=== PATIENT | female | born 1935 | race Caucasian/White ===

== ENCOUNTER → 2018-02-06 | Outpatient (REF) | payer MEDICARE ==
[2018-02-06 18:03] LABS: AMORPHOUS SEDIMENT SMALL (NEGATIVE); APPEARANCE, URINE HAZY (CLEAR); BACTERIA, URINE AUTO NEGATIVE (NEGATIVE); BILIRUBIN, URINE AUTO NEGATIVE (NEGATIVE); BLOOD, URINE BLOOD 1+ (NEGATIVE); COLOR, URINE YELLOW (YELLOW); GLUCOSE, URINE (UA) AUTO NEGATIVE (NEGATIVE); KETONE, URINE AUTO NEGATIVE (NEGATIVE); LEUKOCYTE ESTERASE, URINE AUTO 3+ (NEGATIVE); NITRITE, URINE AUTO NEGATIVE (NEGATIVE); PROTEIN, URINE AUTO NEGATIVE (NEGATIVE); RBC, URINE AUTO 5 /HPF (0-3); SPECIFIC GRAVITY URINE AUTO 1.006 (1.002-1.035); SQUAMOUS EPITHELIAL CELL UR AU 2 /HPF (0-6); UROBILINOGEN, URINE AUTO 0.2 mg/dL (0.0-2.0); WBC, URINE AUTO TNTC /HPF (0-3)
== END ==
LOC: M SFHCCAPE 10:36
DX: R30.0 Dysuria (principal)
CPT/HCPCS: 81001

== ENCOUNTER → 2019-11-08 | Outpatient (CLI) | payer MEDICARE ==
[~2019-11-08] MED LIST: ATOR1TAB21 PO; BENA20TA8 PO; CORE25TA PO; COUM1TAB17 PO; LANO0.12 PO; LIPI10TA PO; METO1TAB7 PO
--- NOTE | 2019-11-09 12:44 | REPVR ---
PROCEDURE INFORMATION: Exam: MR Lumbar Spine Without Contrast. Exam date and time: 11/08/2019 4:55 PM Age: 84 years old Clinical indication: Pain; Lumbago with sciatica; Bilateral; Prior surgery; Surgery date: 6+ months; Surgery type: Fusion; Additional info: M54.32 sciatica radiulopathy lumbar region TECHNIQUE: Imaging protocol: Multiplanar magnetic resonance images of the lumbar spine without intravenous contrast. COMPARISON: No relevant prior studies available. FINDINGS: Vertebrae: Examination reveals an acute superior endplate compression fracture involving the superior endplate T12 vertebral body with a loss of height of approximately 40%. No significant retropulsion is seen. There is an acute inferior endplate compression fracture involving the L1 vertebral body with a loss of height of approximately 10%. No significant retropulsion is seen. Examination reveals the patient to be status post posterior spinal fusion with laminectomy at L4 and L5 levels. Metallic inhomogeneity artifact from surgical hardware limits evaluation in this region. There is degenerative anterolisthesis of L4 over L5. There is degenerative retrolisthesis of L1 over L2. Otherwise,The remainder of the lumbar vertebral bodies are normal in height , signal intensity and alignment.There is moderate diffuse osteopenia. Spinal epidural space: There is no evidence of epidural masses or hemorrhage. Spinal cord: The conus medullaris is normal. The cauda equina nerve roots demonstrate no crowding or displacement. L1-L2: Small diffuse posterior herniation. Mild facet arthropathy.There is no evidence of spinal canal narrowing. There is severe bilateral foraminal stenosis. There is compression on the bilateral exiting nerve root. L2-L3: There is a mild diffuse posterior bulge causing mild effacement of the thecal sac.The facet joints demonstrate moderate degenerative narrowing and sclerosis. There is thickening of the ligamentum flavum.There is mild spinal canal narrowing, with an AP canal dimension of 10 mm.There is severe right lateral recess and foraminal stenosis.There is compression on the right exiting nerve root. L3-L4: Small diffuse posterior herniation. Moderate facet arthropathy.There is no evidence of spinal canal narrowing. There is moderate bilateral foraminal stenosis. L4-L5: Small diffuse posterior herniation.The facet joints demonstrate moderate degenerative narrowing and sclerosis. Stable changes of laminectomy is identified.There is no evidence of spinal canal narrowing. There is severe bilateral foraminal stenosis. There is compression on the bilateral exiting nerve root. L5-S1: No disc herniation is seen. Moderate facet arthropathy.The spinal canal and neural foramina are patent and without significant stenosis. Soft tissues: The prevertebral soft tissues appear normal. IMPRESSION: 1. MRI of the lumbar spine reveals multilevel degenerative spondylitic changes and degenerative disc disease as described above. 2. Examination reveals an acute superior endplate compression fracture involving the superior endplate T12 vertebral body with a loss of height of approximately 40%. No significant retropulsion is seen. 3. There is an acute inferior endplate compression fracture involving the L1 vertebral body with a loss of height of approximately 10%. No significant retropulsion is seen. 4. Examination reveals the patient to be status post posterior spinal fusion with laminectomy at L4 and L5 levels. Metallic inhomogeneity artifact from surgical hardware limits evaluation in this region. 5. There is degenerative anterolisthesis of L4 over L5. There is degenerative retrolisthesis of L1 over L2. Electronically signed by: Dharmesh Curtis On 11/09/2019 12:44:21 PM
== END ==
LOC: M RAD 15:59
DX: M51.16 Intervertebral disc disorders with radiculopathy, lumbar region (principal); M47.26 Other spondylosis with radiculopathy, lumbar region; M48.56XA Collapsed vertebra, not elsewhere classified, lumbar region, initial encounter for fracture

== ENCOUNTER → 2020-05-14 | Outpatient (CLI) | payer MEDICARE | LOC: M LABSMTC 13:08 | PROVIDERS: ATTEND Neurological Surgery | DX: Z01.812 Encounter for preprocedural laboratory examination (principal); Z20.828 Contact with and (suspected) exposure to other viral communicable diseases; M48.061 Spinal stenosis, lumbar region without neurogenic claudication ==